=== PATIENT | male | born 1955 | race Caucasian/White ===

== ENCOUNTER 2018-02-10 08:24 | Emergency (ER) | payer OTHER ==
[~2018-02-10] VITALS: Ht 177.8 cm; Wt 98.2 kg
[2018-02-10 08:29] VITALS: TEMP 36.7; Ht 177.8 cm; Wt 98.2 kg
[2018-02-10 08:36] VITALS: O2SAT 97
[2018-02-10] MEDS ORDERED: FLEC100T21 PO (08:43)
[2018-02-10] MEDS ORDERED: METO25TA56 PO (08:45)
[2018-02-10] MEDS ORDERED: ASPI81TA28 PO (08:45)
[2018-02-10 09:11] LABS: BASO % 0.3 %; BASO ABS # 0.02 K/uL (0-0.2); EOS % 1.3 %; IG# 0.01 K/uL (0.00-0.02); LYMPH % 23.7 %; LYMPH ABS # 1.79 K/uL (1.2-3.4); MEAN CELL VOLUME 92.9 fL (80-100); MEAN CORPUSCULAR HEMOGLOBIN 32.3 pg (25-34); MEAN CORPUSCULAR HGB CONC 34.8 g/dl (32-36); MEAN PLATELET VOLUME 10.2 fL (7.4-10.4); MONO % 8.9 %; MONO ABS # 0.67 K/uL (0.11-0.59); NEUT % 65.7 %; NEUT ABS # 4.95 K/uL (1.4-6.5); PLATELET COUNT 178 K/uL (130-400); RED CELL DISTRIBUTION WIDTH CV 13.6 % (11.5-14.5); RED CELL DISTRIBUTION WIDTH SD 46.4 fL (36.4-46.3); WHITE BLOOD COUNT 7.54 K/uL (4.8-10.8)
[2018-02-10] MEDS ORDERED: ALUMINUM/MAGNESIUM SUSP 30 ML UDC PO STA (09:11)
[2018-02-10] MEDS ORDERED: FAMOTIDINE 20MG/5ML IV PUSH IV STA (09:11)
[2018-02-10] MEDS ORDERED: LIDOCAINE HCL 2% VISC SOLN 20 ML UDC PO STA (09:11)
--- NOTE | 2018-02-10 09:29 | DIAGNOSTIC IMAGING REPORT ---
CHEST ONE VIEW PORTABLE CLINICAL HISTORY: Evaluate Fever/Sepsis dyspnea COMPARISON STUDY: No previous studies for comparison. FINDINGS: The bones soft tissues and hemidiaphragms are normal. The cardiomediastinal silhouette is normal. The lungs are clear. The pulmonary vasculature is normal. Mild cardiomegaly. IMPRESSION: Mild cardiomegaly. Otherwise negative study. The above report was generated using voice recognition software. It may contain grammatical, syntax or spelling errors. Electronically signed by: Jem Barth M.D. 02/10/2018 9:28 AM Dictated Date/Time: 02/10/2018 9:27 AM
[2018-02-10 09:30] LABS: PTT PATIENT 26.4 SECONDS (21.0-31.0)
[2018-02-10 09:41] LABS: ALBUMIN 3.7 gm/dl (3.4-5.0); ALKALINE PHOSPHATASE 92 U/L (45-117); ALT/SGPT 32 U/L (12-78); AST/SGOT 26 U/L (15-37); BLOOD UREA NITROGEN 16 mg/dl (7-18); CALCIUM 9.5 mg/dl (8.5-10.1); CARBON DIOXIDE 28 mmol/L (21-32); CKMB 3.7 ng/ml (0.5-3.6); GLUCOSE 101 mg/dl (70-99); LIPASE 165 U/L (73-393); POTASSIUM 4.4 mmol/L (3.5-5.1); SODIUM 139 mmol/L (136-145); TOTAL PROTEIN 7.5 gm/dl (6.4-8.2)
--- NOTE | 2018-02-10 10:19 | EMERGENCY ROOM VISIT NOTE ---
History Report prepared by Parminder: Beti Minor Under the Supervision of: Dr. Favio Rm D.O. First contact with patient: 08:42 Chief Complaint: CHEST PAIN Stated Complaint: CHEST PAIN Nursing Triage Summary: pt with chest pain for approx 8 hours. pt reports that he has hx of Afib. is camping at [facility]. Chest pain started last night and pt unsure if it was CP or Indigestion. pt took 3 tums which seemed to relieve symptoms. pt woke this am with continued symptoms. hx Afib and HTN. has been taking prescribed medications. History of Present Illness The patient is a 62 year old male who presents to the Emergency Room with complaints of persistent chest tightness starting 12 hours ago. He notices the pain less with standing versus lying down. He took Tums last night which helped briefly. He denies any SOB, diaphoresis, nausea, vomiting, fever, cough, leg pain/swelling, recent illness, or pain elsewhere. He had some SOB and a brief episode of chest discomfort after exertion 2 months ago. The chest discomfort lasted for around 15 seconds. He has not seen a doctor for that episode. He has not had any discomfort with exertion since then. He has a history of atrial fibrillation. He does not feel like he is in A fib. [facility] He notes that he played frisbee a couple days ago. He has not started any new medications recently. Source of History: patient Onset: 12 hours ago Position: chest Quality: other (tightness) Timing: other (persistent) Modifying Factors (Relieving): other (standing, Tums) Associated Symptoms: No fevers, No diaphoresis, No cough, No SOB, No nausea , No vomiting Review of Systems See HPI for pertinent positives & negatives. A total of 10 systems reviewed and were otherwise negative. Past Medical & Surgical Medical Problems: (1) Atrial fibrillation (2) Hypertension Family History No pertinent family history stated Social History Smoking Status: Never Smoker Marital Status: Housing Status: lives with significant other Occupation Status: employed Current/Historical Medications Scheduled Aspirin (Aspirin Ec), 81 MG PO DAILY Flecainide (Tambocor), 100 MG PO BID Metoprolol Tartrate (Lopressor) (Lopressor), 1 TAB PO BID Allergies Coded Allergies: Barbiturates (Verified Allergy, Intermediate, rash, 02/10/18) Physical Exam Vital Signs Date Time Temp Pulse Resp B/P (MAP) Pulse Ox O2 Delivery O2 Flow Rate FiO2 02/10/18 10:21 61 16 143/102 97 Room Air 02/10/18 08:41 67 17 167/107 98 Room Air 02/10/18 08:40 66 02/10/18 08:36 97 Room Air 02/10/18 08:36 97 Room Air 02/10/18 08:29 36.7 67 18 172/105 97 Room Air Physical Exam CONSTITUTIONAL/VITAL SIGNS: Reviewed / noted above. GENERAL: Non-toxic in appearance. INTEGUMENTARY: Warm, dry, and Cando. HEAD: Normocephalic. EYES: without scleral icterus or trauma. ENT/OROPHARYNX: clear and moist. LYMPHADENOPATHY/NECK: Is supple without lymphadenopathy or meningismus. RESPIRATORY: Lungs clear and equal. CARDIOVASCULAR: Regular rate and rhythm. GI/ABDOMEN: Soft and nontender. No organomegaly or pulsatile mass. No rebound or guarding. Normal bowel sounds. EXTREMITIES: Warm and well perfused. BACK: No CVA tenderness. NEUROLOGICAL: Intact without focal deficits. PSYCHIATRIC: normal affect. MUSCULOSKELETAL: Normally developed with good muscle tone. Medical Decision & Procedures ER Provider Diagnostic Interpretation: X ray results and stated below per my interpretation and radiology interpretation. CHEST ONE VIEW PORTABLE CLINICAL HISTORY: Evaluate Fever/Sepsis dyspnea COMPARISON STUDY: No previous studies for comparison. FINDINGS: The bones soft tissues and hemidiaphragms are normal. The cardiomediastinal silhouette is normal. The lungs are clear. The pulmonary vasculature is normal. Mild cardiomegaly. IMPRESSION: Mild cardiomegaly. Otherwise negative study. The above report was generated using voice recognition software. It may contain grammatical, syntax or spelling errors. Electronically signed by: Jem Barth M.D. 02/10/2018 9:28 AM Dictated Date/Time: 02/10/2018 9:27 AM Laboratory Results 02/10/18 09:00 Red Blood Count 4.95, Mean Corpuscular Volume 92.9, Mean Corpuscular Hemoglobin 32.3, Mean Corpuscular Hemoglobin Concent 34.8, Mean Platelet Volume 10.2, Neutrophils (%) (Auto) 65.7, Lymphocytes (%) (Auto) 23.7, Monocytes (%) (Auto) 8.9, Eosinophils (%) (Auto) 1.3, Basophils (%) (Auto) 0.3, Neutrophils # (Auto) 4.95, Lymphocytes # (Auto) 1.79, Monocytes # (Auto) 0.67, Eosinophils # (Auto) 0.10, Basophils # (Auto) 0.02 02/10/18 09:00 Test 02/10/18 09:00 White Blood Count 7.54 K/uL (4.8-10.8) Red Blood Count 4.95 M/uL (4.7-6.1) Hemoglobin 16.0 g/dL (14.0-18.0) Hematocrit 46.0 % (42-52) Mean Corpuscular Volume 92.9 fL (80-100) Mean Corpuscular Hemoglobin 32.3 pg (25-34) Mean Corpuscular Hemoglobin Concent 34.8 g/dl (32-36) Platelet Count 178 K/uL (130-400) Mean Platelet Volume 10.2 fL (7.4-10.4) Neutrophils (%) (Auto) 65.7 % Lymphocytes (%) (Auto) 23.7 % Monocytes (%) (Auto) 8.9 % Eosinophils (%) (Auto) 1.3 % Basophils (%) (Auto) 0.3 % Neutrophils # (Auto) 4.95 K/uL (1.4-6.5) Lymphocytes # (Auto) 1.79 K/uL (1.2-3.4) Monocytes # (Auto) 0.67 K/uL (0.11-0.59) Eosinophils # (Auto) 0.10 K/uL (0-0.5) Basophils # (Auto) 0.02 K/uL (0-0.2) RDW Standard Deviation 46.4 fL (36.4-46.3) RDW Coefficient of Variation 13.6 % (11.5-14.5) Immature Granulocyte % (Auto) 0.1 % Immature Granulocyte # (Auto) 0.01 K/uL (0.00-0.02) Prothrombin Time 10.7 SECONDS (9.0-12.0) Prothromb Time International Ratio 1.0 (0.9-1.1) Activated Partial Thromboplast Time 26.4 SECONDS (21.0-31.0) Partial Thromboplastin Ratio 1.0 Anion Gap 5.0 mmol/L (3-11) Est Creatinine Clear Calc Drug Dose 92.3 ml/min Estimated GFR () 94.4 Estimated GFR (Non- 81.4 BUN/Creatinine Ratio 16.0 (10-20) Calcium Level 9.5 mg/dl (8.5-10.1) Total Bilirubin 0.4 mg/dl (0.2-1) Direct Bilirubin 0.1 mg/dl (0-0.2) Aspartate Amino Transf (AST/SGOT) 26 U/L (15-37) Alanine Aminotransferase (ALT/SGPT) 32 U/L (12-78) Alkaline Phosphatase 92 U/L (45-117) Total Creatine Kinase 163 U/L (39-308) Creatine Kinase MB 3.7 ng/ml (0.5-3.6) Creatine Kinase MB Ratio 2.3 (0-3.0) Troponin I < 0.015 ng/ml (0-0.045) Total Protein 7.5 gm/dl (6.4-8.2) Albumin 3.7 gm/dl (3.4-5.0) Lipase 165 U/L (73-393) Thyroid Stimulating Hormone (TSH) 1.010 uIu/ml (0.300-4.500) Laboratory results as stated above per my review. Medications Administered Medications (Trade) Dose Ordered Sig/Bg Route Start Time Stop Time Status Last Admin Dose Admin Al Hydroxide/Mg Hydroxide (Maalox Susp) 30 ml NOW STAT PO 02/10/18 09:11 02/10/18 09:12 DC 02/10/18 09:21 30 ML Lidocaine HCl (Viscous Lidocaine 2% Soln) 10 ml NOW STAT PO 02/10/18 09:11 02/10/18 09:12 DC 02/10/18 09:21 10 ML Famotidine (Pepcid 20mg Iv Push) 20 mg ONE STAT IV 02/10/18 09:11 02/10/18 09:12 DC 02/10/18 09:21 20 MG ECG Per My Interpretation Indication: chest pain Rate (beats per minute): 62 Rhythm: normal sinus Findings: 1st degree AV block, no ectopy, other (no ST elevation) ED Course 0858: Previous medical records were reviewed. The patient was evaluated in room B10. A complete history and physical examination was performed. 0911: Famotidine 20 mg IV, Lidocaine HCl 10 ml PO, Maalox Susp 30 ml PO. 0955: On reevaluation, the patient is resting comfortably. I discussed the results and findings with the patient. He verbalized agreement of the treatment plan. He was discharged home. Medical Decision Differentials considered include acute myocardial infarction, acute coronary syndrome, myocarditis, pericarditis, pericardial effusions /tamponade, esophageal perforation, thoracic aortic dissection, pulmonary embolism, pneumonia, pneumothorax, pancreatitis, shingles, acute cholecystitis, and perforated abdominal viscus. This is a 62-year-old male who presents to the ED with a chief complaint of chest discomfort. The patient has a history of atrial fibrillation and hypertension. He is not from the area. The patient reports a retrosternal tightness that has been ongoing for the past 12 hours. He denied any other associated symptoms. Denies any recent illness. He has not had any recent exertional symptoms. He also reports that he has not yet taken his medications this morning. He is on flecainide and metoprolol for atrial fibrillation and hypertension. The patient's exam was normal. Blood pressure was somewhat elevated. He did take his morning meds here. His blood pressure did start to improve some. EKG shows a sinus rhythm without ischemic changes. The patient's CBC and complete metabolic panel were normal. Troponin was negative. TSH was normal. Chest x-ray reveals some mild cardiomegaly but otherwise is negative for acute process. Based on the patient's evaluation here today both from his history and objective testing, I did not feel the patient is having an acute myocardial infarction, unstable angina or other acute cardiopulmonary process. He did travel here from [place]. He does not have any leg pain or swelling and no shortness of breath. PE is felt to be unlikely. He was offered stress testing later today but declined it would return for any worsening or new symptoms. Medication Reconcilliation Current Medication List: was personally reviewed by me Blood Pressure Screening Patient's blood pressure: Elevated blood pressure Blood pressure disposition: Referred to PCP Impression Primary Impression: Substernal precordial chest pain Scribe Attestation The scribe's documentation has been prepared under my direction and personally reviewed by me in its entirety. I confirm that the note above accurately reflects all work, treatment, procedures, and medical decision making performed by me. Departure Information Dispostion Home / Self-Care Patient Instructions Chest Pain - [facility], My [facility] Additional Instructions Take Prilosec or Pepcid [id number] for 1-2 weeks to see if this helps symptoms. You may also take Maalox or Mylanta or Tums for symptom control. Tylenol is recommended for discomfort. Return to the emergency department should he develop worsening symptoms or new symptoms. Talk to your doctor about your symptoms when you get home to see if further testing would be beneficial. 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
[2018-02-10 10:33] VITALS: BP 143/102; PULSE 61; O2SAT 97
== END 2018-02-10 10:35 | disposition home or self-care (01) ==
LOC: C.EDB 08:26
DX: R07.2 Precordial pain (principal); I10 Essential (primary) hypertension; I48.91 Unspecified atrial fibrillation; Z79.82 Long term (current) use of aspirin; Z79.899 Other long term (current) drug therapy; Z88.8 Allergy status to other drugs, medicaments and biological substances